=== PATIENT | female | born 1950 | race Caucasian/White ===

== ENCOUNTER 2018-02-10 09:09 | Observation (INO) | payer OTHER, MEDICARE ==
[2018-02-10 10:27] LABS: Troponin I Less than 0.010 ng/mL (< 0.028)
--- NOTE | 2018-02-10 12:24 | HP ---
PRIMARY CARE PHYSICIAN: Dr. Parry. REASON FOR ADMISSION: Transfer from [facility] for chest pain. HISTORY OF PRESENT ILLNESS: A 67-year-old female who has underlying history of hypertension, diabete s type 2, dyslipidemia, and coronary artery disease with several stent who presented initially to [facility] with the complaint of chest pain. She reports that she has chest pain on an d off for the last several months. She tells me of more than 3-4 months. Her pain is pretty much on the left-sided, which comes and goes. Yesterday, she had more frequent episode of chest pain, which was left-sided in location, sharp in nature without any association of nausea, vomiting, diaphoresis or shortness of breath. With the chest pain, she was not feeling any palpitation and there was no r adiation of pain. The pain was lasting randomly different time. There was no specific aggravating o r relieving factor. The patient reports that over this period of time, the patient did not put any a ttention to it what aggravating or what relieving, but she was worried about yesterday's more frequen t pain and this morning she woke up with chest pain and that is why she wanted to check out and that is why she went to [facility]. Initially at [facility], she was hypertensive. She was given nitro patch, amlodipin e, aspirin and subsequently this patient was transferred to our hospital for rule out acute coronary syndrome. Initial cardiac enzymes were negative there and echocardiogram was also unremarkable. Whe n I saw this patient in the morning, at that time, the patient was completely asymptomatic. She repo rted to me that sometimes she gets tingling sensation in her right hand, but it also happens even wit hout chest pain. She denies any UTI symptoms. She denies any constipation, diarrhea, melena or sharmin tochezia. She denies any exertional chest pain. She denies any orthopnea, PND or leg swelling. She denies any calf tenderness. She denies any hemoptysis or cough. She denies any fever or chills. REVIEW OF SYSTEMS: The following complete review of systems was negative, unless otherwise mentioned in the HPI or below: Constitutional: Weight loss or gain, ability to conduct usual activities. Skin: Rash, itching. Eyes: Double vision, pain. ENT/Mouth: Nose bleeding, neck stiffness, pain, tenderness. Cardiovascular: Palpitations, dyspnea on exertion, orthopnea. Respiratory: Shortness of breath, wheezing, cough, hemoptysis, fever or night sweats. Gastrointestinal: Poor appetite, abdominal pain, heartburn, nausea, vomiting, constipation, or diarr hea. Genitourinary: Urgency, frequency, dysuria, nocturia. Musculoskeletal: Pain, swelling. Neurologic/Psychiatric: Anxiety, depression. Allergy/Immunologic: Skin rash, bleeding tendency. Please see my HPI for pertinent positive and negative. All other review of system reviewed and negat janusz except as mentioned in the HPI. PAST MEDICAL HISTORY: Diabetes type 2, hypertension, dyslipidemia, coronary artery disease with a st ent. PAST SURGICAL HISTORY: Tubal ligation, cardiac catheterization with 3 stents placed in past. PAST PSYCHIATRIC HISTORY: Reviewed and negative. SOCIAL HISTORY: Patient lives at home with the family. No history of tobacco, alcohol or illicit dr ug abuse. FAMILY HISTORY: Positive for coronary artery disease to mother and brother. EMERGENCY ROOM COURSE: Patient was given aspirin, amlodipine, nitropatch at [facility]. ALLERGIES: No known drug allergy. CURRENT HOME MEDICATIONS: Lipitor 40 mg p.o. daily, metformin 1000 mg twice daily, metoprolol tartra te 25 mg twice daily, aspirin 81 mg p.o. daily, lisinopril 10 mg p.o. daily. PHYSICAL EXAMINATION: VITAL SIGNS: On arrival, blood pressure 160/72, pulse 71, respiratory rate 17, temperature 98.6, sat uration 96% on room air, weight 63.5 kilograms. GENERAL: Patient is currently alert, awake, no acute distress. HEENT: Head: Normocephalic, atraumatic. Eyes: Pupils round, reactive to light. Extraocular muscl e intact. ENT: Oropharynx within normal limits. Moist mucous membranes. No oral lesion, no pharyn geal erythema, no exudate. NECK: Supple, no JVD, no thyromegaly, no carotid bruit, no jugular venous distention. LUNGS: Clear to auscultation without any rhonchi or rales. CARDIAC: S1, S2 regular, soft systolic flow murmur, type of murmur heard parasternally. No gallop, no rub. ABDOMEN: Soft, bowel sounds present, nontender, nondistended. No organomegaly, no mass, no suprapub ic tenderness. BACK: Unremarkable, no CVA tenderness. EXTREMITIES: Upper extremity, passive movement of all joints are normal. Lower extremity, no edema, good peripheral pulsation, no calf tenderness. SKIN: No skin rash. HEMATOLOGICAL: No lymphadenopathy. PSYCHIATRIC: Normal affect. NEUROLOGIC: Nonfocal examination. SIGNIFICANT LABORATORY DATA AND X-RAY FINDINGS: 1. CBC: WBC 13.3, hemoglobin 13.3, platelets 321. INR 1.0. BMP shows sodium 137, potassium 4.8, c hloride 101, carbon dioxide 22, anion gap 19, BUN 14, creatinine 0.79, glucose 186, calcium 9.2. 2. LFT: AST 10, ALT 10, alkaline phosphatase 81, albumin 3.5. CK-MB 1.2, troponin I less than 0.01 0. BNP 32.8. 3. Chest x-ray based on my review, no acute cardiopulmonary process. EKG based on my review, normal sinus rhythm within normal limit, nonspecific ST-T changes. ASSESSMENT AND PLAN: 1. Chest pain. The patient has prolonged chest pain history, which is on and off, but gotten worse yesterday and woke up this morning with chest pain. She has underlying history of coronary artery di sease with stents x3 and she has other risk factors for coronary artery disease including diabetes, h ypertension, dyslipidemia, and family history. Her current chest pain description does not consisten t with anginal pain, but atypical in nature. At this point, the patient's cardiac enzymes are negati ve. EKG unremarkable. We will perform exercise Cardiolite stress test for diagnostic reason. Flakita urbina, we will continue with aspirin 325 mg p.o. daily, nitropatch q.8 hourly. We will check lipid pr ofile for risk stratification. This patient does not have any clinical history to support thromboemb olic disorder. At this point, we are trying to do stress test today if possible and if stress test t urn out to be negative, then we will consider discharging her home later on today. Otherwise, if str ess test is not done today, then she will stay overnight and we will have stress test done in the [facility] and then if negative, she can be discharged home. 2. Coronary artery disease. Currently, the patient is admitted for chest pain workup. Currently, jesse prescott has aspirin 325 mg p.o. daily, nitropatch q.8 hourly. We are not going to give her beta block er for stress test. We will continue Lipitor 40 mg p.o. at bedtime. 3. Diabetes type 2. We will hold metformin for now. In case if this patient's stress test is posit janusz, then she may need a cardiac catheterization and we will do insulin as per sliding scale per prot ocol. Diabetic diet will be given. We will keep her n.p.o. for now if we can do stress test today. If stress trest is not possible today, then we will start 1800 kilocalorie diabetic diet and we will keep her n.p.o. after midnight. 4. Hypertension. We will continue lisinopril 10 mg p.o. daily. 5. Dyslipidemia. Check lipid profile today and does continue Lipitor 40 mg p.o. at bedtime. 6. Deep venous thrombosis prophylaxis not needed, because we are expecting discharge in 24 hours. 7. Gastrointestinal prophylaxis, Pepcid 20 mg p.o. b.i.d. 8. Code status: The patient is FULL CODE. Patient does not have any surrogate decision maker. Disposition and plan based on stress test result.
[2018-02-10] MEDS ORDERED: HYDROcodone/Acetaminophen 5/325 mg Tablet PO PRN ×3 (12:38→12:55)
[2018-02-10] MEDS ORDERED: Acetaminophen 325 MG TAB PO PRN ×2 (12:38→12:55)
[2018-02-10] MEDS ORDERED: Ondansetron HCl/PF 4 MG/2 ML Vial IVP PRN ×2 (12:38→12:55)
[2018-02-10] MEDS ORDERED: Ondansetron ODT 4 MG TAB SL PRN (12:38)
[2018-02-10 12:40] VITALS: BMI 24.7
[2018-02-10] MEDS ORDERED: Dextrose 5% in Water 1,000 ML IV PRN (12:55)
[2018-02-10] MEDS ORDERED: Milk Of Magnesia 30 ML UDCUP PO PRN (12:55)
[2018-02-10] MEDS ORDERED: Loperamide HCl 2 MG CAP PO PRN (12:55)
[2018-02-10] MEDS ORDERED: Mag-Al 1200 mg/1200 mg/30 ML UDCUP PO PRN (12:55)
[2018-02-10] MEDS ORDERED: HumaLOG 300 UNITS/3 ML VIAL SC PRN ×2 (12:55)
[2018-02-10] MEDS ORDERED: Senokot 8.6 MG TAB PO PRN (12:55)
[2018-02-10] MEDS ORDERED: Dextrose 50% Abboject 50 ML SYRINGE SLOW IVP PRN (12:55)
[2018-02-10] MEDS ORDERED: Ondansetron ODT 4 MG TAB PO PRN (12:55)
[2018-02-10] MEDS ORDERED: Zolpidem Tartrate 5 MG TAB PO PRN (12:55)
[2018-02-10] MEDS ORDERED: Aspirin 325 MG TAB PO SCH (13:00)
[2018-02-10 13:13] LABS: Troponin I Less than 0.010 ng/mL (< 0.028)
[2018-02-10 13:16] LABS: Cardiac Risk 3.2 (Less than 4.5)
[2018-02-10] MEDS: Nitroglycerin 2% Ointment 1 INCH/1 GM Packet TOP SCH ×2 (14:36→20:43)
[2018-02-10] MEDS: Famotidine 20 MG TAB PO SCH (20:39)
[2018-02-10] MEDS ORDERED: Atorvastatin Calcium 40 MG TAB PO SCH (21:00)
[2018-02-10] MEDS ORDERED: Prevnar 13-Val Conj/PF 0.5 ML SYRINGE IM ONE (21:00)
[2018-02-11] MEDS: Nitroglycerin 2% Ointment 1 INCH/1 GM Packet TOP SCH (06:37)
[2018-02-11] MEDS ORDERED: Aspirin 325 MG TAB PO SCH (09:00)
[2018-02-11] MEDS ORDERED: Lisinopril 10 MG TAB PO SCH (09:00)
[2018-02-11] MEDS: Famotidine 20 MG TAB PO SCH (09:36)
--- NOTE | 2018-02-11 11:40 | DIS ---
PRIMARY CARE PHYSICIAN: Dr. Parry DATE OF ADMISSION: 02/10/2018 DATE OF DISCHARGE: 02/11/2018 DISCHARGE DISPOSITION: Home. PRIMARY DISCHARGE DIAGNOSIS: Chest pain, ruled out acute coronary syndrome. SECONDARY DISCHARGE DIAGNOSES: Coronary artery disease, diabetes type 2, dyslipidemia, hypertension. PRIMARY PROCEDURE/OPERATION: None. RADIOLOGICAL INVESTIGATION: Stress test is normal. His chest x-ray was done at [facility], it was normal. SIGNIFICANT LABS: CBC: WBC 13.3, hemoglobin 13.3, platelet 321. INR 1.0, LDL 57. Cardiac enzymes negative x3. Sodium 137, creatinine 0.79. LFT normal. BNP 32.8. DISCHARGE MEDICATIONS: Aspirin 81 mg p.o. daily, Lipitor 40 mg p.o. daily, Glucotrol 10 mg p.o. matias y, lisinopril 10 mg p.o. daily, metformin 1000 mg p.o. b.i.d., metoprolol 25 mg p.o. b.i.d. CONTRAINDICATIONS: None. CODE STATUS: FULL CODE. INPATIENT CONSULTANTS: None. ALLERGIES: No known drug allergy. DISCHARGE PLAN: Post hospital, the patient will follow up with primary care physician in 1 week. HOSPITAL COURSE: A 67-year-old female with the above-mentioned medical problem who was admitted by lauren zapata for chest pain. Please see my HPI for further detail. Initially, the patient went to [facility] where she had an EKG which was unremarkable. Chest x-ray was normal. Routine blood test was also unremarkable. She was sent to our hospital for rule out acute coronary syndrome. She had serial cardiac enzyme that were negative. Her lipid profile is also at target. We did stress te st, pharmacological and that came back negative as well. The patient is seen and examined at bedside today. VITAL SIGNS: Currently, temperature 98.4, pulse 68, respiratory rate 12, saturation 97%, blood press ure 166/71, weight 144 pound. GENERAL: The patient is currently alert, awake, no acute distress. HEAD: Normocephalic, atraumatic. EYES: Pupils are round, reactive to light. Extraocular muscle intact. ENT: Oropharynx within normal limits. Moist mucous membrane, no oral lesion, no pharyngeal erythema , no exudate. NECK: Supple, no JVD, no thyromegaly, no carotid bruit. LUNGS: Clear to auscultation. CARDIAC: S1, S2 regular without any murmur. ABDOMEN: Soft and benign. EXTREMITIES: No edema. NEUROLOGIC: Nonfocal examination. The patient is medically stable for discharge today.
--- NOTE | 2018-02-11 11:48 | NM ---
CARDIAC SPECT: CLINICAL HISTORY: 67-year-old female with chest pain and coronary artery disease. Status post stent placement. Hyperten melinda, diabetes, and dyslipidemia. TECHNIQUE: A myocardial perfusion scan was performed using the single isotope two day protocol with 32 mCi techn etium-99m sestamibi injected intravenously for both stress and rest images. Pharmacologic stress with Lexiscan was monitored and interpreted by Joe Caraballo. FINDINGS: Homogeneous tracer distribution is seen in the myocardial segments on stress and rest images without fixed or reversible defects. GATED SPECT LVEF: 76%. WALL MOTION EXAM: Normal. IMPRESSION: Normal myocardial perfusion scan. POS: ESTEBAN
[2018-02-11 12:51] VITALS: BP 153/67; TEMP 97.6
[2018-02-11] MEDS ORDERED: Regadenoson 0.4 MG/5 ML SYRINGE ONE (13:24)
== END 2018-02-11 14:43 | disposition home or self-care (01) ==
LOC: ERS 09:09 → 2SW 10:03
PROVIDERS: ADMIT Internal Medicine; ATTEND Internal Medicine
DX: R07.9 Chest pain, unspecified (principal); I25.10 Atherosclerotic heart disease of native coronary artery without angina pectoris; E11.9 Type 2 diabetes mellitus without complications; E78.5 Hyperlipidemia, unspecified; Z95.5 Presence of coronary angioplasty implant and graft; Z79.84 Long term (current) use of oral hypoglycemic drugs; Z79.82 Long term (current) use of aspirin; Z79.899 Other long term (current) drug therapy
CPT/HCPCS: 36415; 36416; 78452; 80061; 93017; 99285; A9500; G0378; J2785

== ENCOUNTER 2019-04-01 12:21 | Observation (INO) | payer MEDICARE, OTHER ==
[2019-04-01 13:31] LABS: Bacteria/HPF 1+ HPF (None Seen); Bilirubin Negative (Negative); Blood, Urine Negative (Negative); Clarity Clear (Clear); Glucose, Urine (Dipstick) Greater than 1000 mg/dL (Negative); Leukocyte 25 Leu/uL (Negative); Nitrite Negative (Negative); Protein, Urine (Dipstick) Negative (Neg-Trace); Urobilinogen Normal mg/dL (Less than 2); Yeast-Budding 2+ HPF (None Seen)
[2019-04-01 13:44] LABS: RBC/HPF 0-3 HPF (0-3)
--- NOTE | 2019-04-01 16:21 | HP ---
PRIMARY CARE PHYSICIAN: Dr. Parry. CHIEF COMPLAINT: Slurred speech. HISTORY OF PRESENT ILLNESS: Ms. De Santiago is a pleasant 68-year-old female, who has a history of hypertension and diabetes. She was in her usual state of health until last night when she started having some slurring of her speech. This started around 5:00 to 5:30 p.m. She has also mentioned some right hand tingling, but this has been going on she says for a long time and has not changed in any way. She has a friend who is at the bedside, who says that her eyes also look glassy at that time and she thought that the right side of her face was a little bit drooped. Her friend convinced her to come to the hospital. Since being in the emergency room, her symptoms have actually improved some and she is being admitted for TIA versus stroke. She denies having any chest pain currently, but has had some she says sharp chest pains off and on. No shortness of breath. No PND. No orthopnea. No weakness in any of her extremities. REVIEW OF SYSTEMS: CONSTITUTIONAL: There has been no fevers or chills. No night sweats. No weight loss. HEENT: No headaches. No dizziness. No visual changes. No sore throat or rhinorrhea. NECK: No neck pain. No adenopathy. PULMONARY: No hemoptysis, no cough, no wheezing. CARDIOVASCULAR: As in the history of present illness. GASTROINTESTINAL: No abdominal pain. No nausea. No vomiting. No change in bowels. GENITOURINARY: No urinary frequency or hematuria. No hesitancy. NEUROLOGIC: As in the history of present illness and also no seizures. MUSCULOSKELETAL: No muscle pains, weakness, or joint pain. SKIN AND INTEGUMENT: No skin changes. No rash. PAST MEDICAL HISTORY: Significant for coronary artery disease, diabetes mellitus type 2, hypertension, and hyperlipidemia. PAST SURGICAL HISTORY: She has had three stents placed, heart stents. ALLERGIES: NO KNOWN DRUG ALLERGIES. SOCIAL HISTORY: She is a nonsmoker and nondrinker. She is a full code. Her daughter, Lisette states would be her surrogate decision maker. FAMILY HISTORY: Significant for coronary artery disease. Brother and sister had stroke. Mother has had heart disease. CURRENT MEDICATIONS: She says they are the same as when she was here before and these include; 1. Atorvastatin 40 mg daily. 2. Metformin 1000 mg twice daily. 3. Metoprolol 50 mg one-half tablet twice a day. 4. Aspirin 81 mg daily. 5. Lisinopril 20 mg daily. PHYSICAL EXAMINATION: GENERAL: She is alert and oriented. She appears to be in no acute distress. She is well developed and well nourished. VITAL SIGNS: Blood pressure was 162/74, heart rate 66, respiratory rate of 16, temperature is 98.4, and O2 saturation is 96% on room air. HEENT: Pupils are equal, round, and reactive to light. Extraocular muscles are intact. Her sclerae anicteric. Throat, there is no erythema. No exudates. NECK: No adenopathy. No bruits. LUNGS: Clear to auscultation. There is no wheezing, no rales, no rhonchi. CARDIOVASCULAR: She has a normal S1 and S2. There is no S3 or S4. No murmurs, clicks, or rubs. ABDOMEN: Soft. It is nontender and nondistended. Positive for bowel sounds. No rebound. No guarding. EXTREMITIES: There is no clubbing or cyanosis. No edema. NEUROLOGIC: She has some dysarthria and her cranial nerves are intact. Her muscle strength is 5/5 in both her upper and lower extremities. She did have some weakness with sternocleidomastoid, that is on the right. SKIN AND INTEGUMENT: No skin changes. No rashes. LABORATORY DATA: Her urinalysis; she has some 2+ yeast and her white blood cell count was 8.6, hemoglobin 14, hematocrit is 42.8, and platelet count is 298. INR is 1.0. Sodium is 137, potassium 4.5, chloride is 102, CO2 is 26, BUN of 12, creatinine of 1.02, and glucose is 289. She had a CT scan of the brain, which was negative for any acute intracranial abnormality. She also had a chest x-ray, which was negative for any infiltrates or effusions and heart size is normal and this is by my reading. ASSESSMENT: 1. This is a pleasant 68-year-old female, who presents to the emergency room with complaints of slurred speech. Her symptoms have been fairly consistent since 0530 hours of last night, making this a strong possibility that this could be a completed stroke. There has been some improvement however. She will be admitted. We will monitor her on telemetry to rule out occult atrial fibrillation of the potential cause, check her lipid panel as well as carotid Dopplers, and an echo. 2. For hypertension, we will continue her usual home medications as well as p.r.n. medications. 3. Diabetes mellitus. We will hold off on metformin for now. However, we will place her on a sliding scale insulin. She will also be placed on DVT and GI prophylaxis. Job ID: [id number]
[2019-04-01] MEDS ORDERED: Acetaminophen 325 MG TAB PO PRN ×2 (16:45→17:08)
[2019-04-01] MEDS ORDERED: Ondansetron PF 4 MG/2 ML Vial IVP PRN (16:45)
[2019-04-01] MEDS ORDERED: Ondansetron ODT 4 MG TAB SL PRN (16:45)
[2019-04-01 17:02] VITALS: BMI 22.3
[2019-04-01] MEDS ORDERED: HumaLOG 300 UNITS/3 ML VIAL SC PRN (17:08)
[2019-04-01] MEDS ORDERED: Dextrose 50% Abboject 50 ML SYRINGE SLOW IVP PRN (17:08)
[2019-04-01] MEDS ORDERED: Dextrose 5% in Water 1,000 ML IV PRN (17:08)
[2019-04-01] MEDS ORDERED: hydrALAZINE 20 MG/ML VIAL SLOW IVP PRN (17:57)
[2019-04-01] MEDS ORDERED: Atorvastatin Calcium 40 MG TAB PO SCH (21:00)
[2019-04-01] MEDS: Famotidine 20 MG TAB PO SCH (21:03)
[2019-04-01] MEDS: Metoprolol Tartrate 25 MG TAB PO SCH (21:03)
[2019-04-01] MEDS: HumaLOG 300 UNITS/3 ML VIAL SC PRN (21:19)
[2019-04-02 06:26] LABS: #Basophils 0.1 thou/uL (0.0-0.2); #Eosinphils 0.5 thou/uL (0.0-0.7); #Lymphocytes 2.5 thou/uL (1.20-3.40); #Monocytes 0.6 thou/uL (0.11-0.59); #Neutrophils 4.5 thou/uL (1.40-6.50); %Basophils 0.8 % (0.0-1.0); %Eosinophils 5.8 % (0.0-10.0); %Lymphocytes 30.5 % (21.0-51.0); %Monocytes 7.2 % (0.0-10.0); %Neutrophils 55.6 % (42.0-75.0); Hemoglobin 13.5 g/dL (12.0-16.0); Mean Corpuscular HGB CONC 32.9 g/dL (32.0-36.0); Mean Corpuscular Hemoglobin 30.9 pg (27.0-31.0); Mean Corpuscular Volume 93.9 fL (78.0-98.0); Mean Platelet Volume 8.1 fL (7.4-10.4); Platelet Count 291 thou/uL (130-400); RBC Distribution Width 11.1 % (11.5-14.5); Red Blood Cell (RBC) Count 4.38 mill/uL (4.20-5.40)
[2019-04-02 06:46] LABS: Anion Gap 10 mmol/L (10-20); BUN (Urea Nitrogen) 15 mg/dL (9.8-20.1); Calc. Creatinine Clearance 58 mL/min (70-130); Carbon Dioxide 26 mmol/L (23-31); Cardiac Risk 3.5 (Less than 4.5); Chloride 102 mmol/L (98-107); Cholesterol 132 mg/dl (< 200 Desired); Estimated GFR-MDRD 59; Glucose 222 mg/dL (80-115); HDL Cholesterol 38 mg/dL (>60 Neg Risk); LDL Cholesterol, Calculated 69 mg/dL; Potassium 4.3 mmol/L (3.5-5.1); Sodium 134 mmol/L (136-145); Triglycerides 127 mg/dL (Less than 150)
[2019-04-02] MEDS ORDERED: glipiZIDE 10 MG TAB PO SCH (07:30)
--- NOTE | 2019-04-02 08:07 | ULT ---
Ultrasound Doppler duplex carotid: 04/02/2019 HISTORY: 8-year-old female with TIA TECHNIQUE: Grayscale, color-flow, and spectral analysis, of major arteries of neck. FINDINGS: Vertebral artery flow is antegrade bilaterally. Highest peak systolic velocities in the internal carotid arteries are 90 cm/s on the right and 85 cm/ s on the left. ICA/CCA ratios are bilaterally approximately 1.0. Minimal plaque at the bilateral carotid bulbs. IMPRESSION: No hemodynamically significant stenosis.
[2019-04-02] MEDS ORDERED: Enoxaparin Sodium 40 MG/0.4 ML SYRINGE SC SCH (09:00)
[2019-04-02] MEDS ORDERED: Clopidogrel Bisulfate 75 MG TAB PO SCH (09:00)
[2019-04-02] MEDS ORDERED: Lisinopril 10 MG TAB PO SCH (09:00)
[2019-04-02] MEDS ORDERED: Aspirin 81 mg Enteric Coated Tablet PO SCH (09:00)
[2019-04-02] MEDS ORDERED: Aspirin 325 mg Enteric Coated Tablet PO SCH (09:00)
[2019-04-02] MEDS: Metoprolol Tartrate 25 MG TAB PO SCH (10:22)
[2019-04-02] MEDS: Famotidine 20 MG TAB PO SCH (10:22)
--- NOTE | 2019-04-02 12:24 | CON ---
DATE OF CONSULTATION: 04/02/2019 CONSULTING PHYSICIAN: Hospitalist Service. IMPRESSION: 1. Probable small vessel stroke with mild dysarthria. 2. Diabetes. 3. Hypertension. 4. Hyperlipidemia. 5. Aspirin failure. PLAN: 1. Add Plavix. 2. Echocardiogram. 3. MRI of the brain. HISTORY OF PRESENT ILLNESS: Ms. De Santiago is a 68-year-old female with the above noted medical problems. She presented with dysarthria, that has been present for [address] scan did not show any ischemic changes. Her carotid ultrasound does not show any stenosis. Her symptoms have improved somewhat based on her reports. PAST MEDICAL HISTORY: As listed above. ALLERGIES: NONE. SOCIAL HISTORY: Unremarkable. FAMILY HISTORY: Unremarkable. MEDICATION LIST: Reviewed. REVIEW OF SYSTEMS: Ten system review of systems is otherwise negative. PHYSICAL EXAMINATION: VITAL SIGNS: Blood pressure 114/59, pulse 59, respirations 16, and temperature 97.3. HEENT: Pupils are equal and reactive. Conjunctivae are clear. Oropharynx clear. Cranium, normocephalic and atraumatic. NECK: Supple. No lymphadenopathy. EXTREMITIES: No cyanosis, clubbing, or edema. NEUROLOGIC: She is alert and appropriate. Her speech is fluent with a mildly dysarthric quality. Cranial nerves exam showed some questionable right nasolabial fold flattening. Motor exam showed equal cradle slide maker strength. There is no fix or drift. Sensation was intact to touch. She can walk independently. LABORATORY STUDIES: Unremarkable CBC and chemistry panel other than a blood glucose of 437 on arrival. Cholesterol ratio was 3.5. Urinalysis showed glucosuria. IMAGING DATA: Imaging was reviewed. SUMMARY: This is a 68-year-old woman with some mild dysarthria consistent with a small stroke. She was already on aspirin and a statin, therefore I would add Plavix and complete her workup today and she should be stable for discharge. Job ID: [id number]
[2019-04-02] MEDS: HumaLOG 300 UNITS/3 ML VIAL SC PRN ×2 (12:30→17:30)
--- NOTE | 2019-04-02 13:53 | PDOC.PN ---
- Subjective Encounter Start Date: 04/02/19 Encounter Start Time: 11:30 Subjective: awake, moves all extremities -: mild difficulty speaking, no facial weakness -: has chronic right UE tingling - Objective Resuscitation Status - Order Detail: 04/01/19 15:47 Resuscitation Status Routine Resuscitation Status: FULL: Full Resuscitation MAR Reviewed: Yes Vital Signs & Weight: Vital Signs (12 hours) Temp Pulse Pulse Pulse Resp BP BP 04/02/19 11:49 98.0 F 56 L 16 04/02/19 09:28 67 66 139/69 139/72 04/02/19 09:00 67 67 139/70 139/69 04/02/19 07:00 97.3 F L 59 L 16 04/02/19 04:00 98.4 F 62 16 BP Pulse Ox 04/02/19 11:49 116/64 97 04/02/19 09:28 04/02/19 09:00 04/02/19 07:00 114/59 L 96 04/02/19 04:00 125/65 97 Weight Weight 138 lb 8 oz I&O: 04/01/19 04/02/19 04/03/19 06:59 06:59 06:59 Intake Total 780 480 Balance 780 480 Result Diagrams: 04/02/19 06:05 04/02/19 06:05 Additional Labs: Accuchecks 04/02/19 04/02/19 04/01/19 10:34 05:45 21:11 POC Glucose 228 H 189 H 437 H Phys Exam - Physical Examination HEENT: PERRLA, moist MMs Neck: no JVD, supple Respiratory: no wheezing, no rales Cardiovascular: RRR, no significant murmur Gastrointestinal: soft, non-tender, positive bowel sounds Musculoskeletal: no edema, pulses present Neurological: non-focal, moves all 4 limbs dysarthria+ Psychiatric: normal affect, A&O x 3 Dx/Plan (1) TIA (transient ischemic attack) Code(s): G45.9 - TRANSIENT CEREBRAL ISCHEMIC ATTACK, UNSPECIFIED Status: Acute (2) CAD (coronary artery disease) Code(s): I25.10 - ATHSCL HEART DISEASE OF [place] CORONARY ARTERY W/O ANG PCTRS Status: Chronic Qualifiers: Coronary Disease-Associated Artery/Lesion type: [place] artery [place] vs. transplanted heart: [place] heart Associated angina: without angina Qualified Code(s): I25.10 - Atherosclerotic heart disease of [place] coronary artery without angina pectoris Comment: prior 3 stents (3) Diabetes type 2, controlled Code(s): E11.9 - TYPE 2 DIABETES MELLITUS WITHOUT COMPLICATIONS Status: Chronic Qualifiers: Diabetes mellitus moth exterminator insulin use: without chcf use Diabetes mellitus complication status: without complication Qualified Code(s): E11.9 - Type 2 diabetes mellitus without complications (4) Dyslipidemia Code(s): E78.5 - HYPERLIPIDEMIA, UNSPECIFIED Status: Chronic (5) Hypertension Code(s): I10 - ESSENTIAL (PRIMARY) HYPERTENSION Status: Chronic Qualifiers: Hypertension type: essential hypertension Qualified Code(s): I10 - Essential (primary) hypertension - Plan await MRI and echo results -: clinically has dysarthria but has improved, no focal signs -: continue asp, plavix, lipitor, lopressor, glipizide -: If mri does not show a big infarct may dc home -: d/w patient and gave updates about currents results * . Review of Systems - Medications/Allergies Allergies/Adverse Reactions: Allergies Allergy/AdvReac Type Severity Reaction Status Date / Time No Known Allergies Allergy Verified 02/10/18 12:45 Medications: Current Medications Acetaminophen (Tylenol) 650 mg PO Q4H PRN PRN Reason: Headache/Fever/Mild Pain (1-3) Aspirin (Ecotrin) 81 mg PO DAILY [facility] Last Admin: 04/02/19 10:22 Dose: 81 mg Atorvastatin Calcium (Lipitor) 40 mg PO HS [facility] Last Admin: 04/01/19 21:02 Dose: 40 mg Clopidogrel Bisulfate (Plavix) 75 mg PO DAILY [facility] Last Admin: 04/02/19 10:22 Dose: 75 mg Dextrose/Water (Dextrose 50%) 25 gm SLOW IVP PRN PRN PRN Reason: Hypoglycemia Enoxaparin Sodium (Lovenox) 40 mg SC 0900 [facility] Last Admin: 04/02/19 10:22 Dose: 40 mg Famotidine (Pepcid) 20 mg PO BID [facility] Last Admin: 04/02/19 10:22 Dose: 20 mg Glipizide (Glucotrol) 10 mg PO DAILY-AC [facility] Last Admin: 04/02/19 10:22 Dose: 10 mg Glucagon (Glucagon) 1 mg IM PRN PRN PRN Reason: Hypoglycemia Hydralazine HCl (Apresoline) 10 mg SLOW IVP Q4H PRN PRN Reason: SBP > 180 and HR < 70 Dextrose/Water (D5w) 1,000 mls @ 0 mls/hr IV .Q0M PRN PRN Reason: Hypoglycemia Insulin Human Lispro (Humalog) 0 units SC .MODERATE SLIDING SC PRN PRN Reason: Moderate Correctional Scale Last Admin: 04/02/19 12:30 Dose: 4 unit Insulin Human Lispro (Humalog) 0 units SC .BEDTIME SLIDING SC PRN PRN Reason: Bedtime Correctional Scale Lisinopril (Zestril) 10 mg PO DAILY [facility] Last Admin: 04/02/19 10:22 Dose: 10 mg Metoprolol Tartrate (Lopressor) 25 mg PO BID [facility] Last Admin: 04/02/19 10:22 Dose: 25 mg Ondansetron HCl (Zofran) 4 mg IVP Q6H PRN PRN Reason: Nausea/Vomiting Ondansetron HCl (Zofran Odt) 4 mg SL Q6H PRN PRN Reason: Nausea/Vomiting Sodium Chloride (Flush - Normal Saline) 10 ml IVF PRN PRN PRN Reason: Saline Flush
[2019-04-02 16:00] VITALS: BP 114/62; TEMP 98
--- NOTE | 2019-04-02 17:21 | MRI ---
Exam: Brain MRI without contrast HISTORY: Eval for CVA. Arm numbness. Slurred speech. COMPARISON: None FINDINGS: Calvarial marrow signal intensity: Appropriate T1 signal Gradient echo sequence: No hemorrhage Brain parenchyma: No mass, mass effect or midline shift. Brain volume, age-appropriate. Cortical narayanan-white matter differentiation: Preserved Restricted diffusion: Central arterial flow voids are maintained. Absent restricted diffusion White matter signal intensities: T2, FLAIR white matter hyperintensities due to chronic small vessel ischemic changes Sinuses: Adequate aeration of the paranasal sinuses and mastoid air cells. IMPRESSION: 1. Absent restricted diffusion. No acute infarct. 2. No acute intracranial process.
--- NOTE | 2019-04-03 17:19 | DIS ---
DATE OF ADMISSION: 04/01/2019 DATE OF DISCHARGE: 04/02/2019 DISCHARGE DISPOSITION: Home. PRIMARY DISCHARGE DIAGNOSIS: Transient ischemic attack, resolved. SECONDARY DISCHARGE DIAGNOSES: Coronary artery disease with prior stents, diabetes mellitus type 2, dyslipidemia, and hypertension. PROCEDURES DONE DURING HOSPITALIZATION: MRI of brain showed absent restricted diffusion. No acute infarct. No acute intracranial process. Ultrasound of carotids showed no hemodynamically significant stenosis. Echo with 2D Doppler showed EF of 55% to 60%. No ASD or PFO seen. Hemoglobin and hematocrit of 13 and 41, platelet count 291. Total cholesterol 132, triglycerides 127, LDL 69, and HDL 38. DISCHARGE MEDICATIONS: 1. Atorvastatin 20 mg p.o. at bedtime. 2. Jardiance 25 mg p.o. q.a.m. 3. Glipizide 10 mg twice daily. 4. Lisinopril 10 mg daily. 5. Glucophage 1000 mg twice daily. 6. Lopressor 12.5 mg p.o. twice daily. 7. Aspirin 81 mg p.o. daily. 8. MiraLAX 17 g daily. ALLERGIES: NO KNOWN DRUG ALLERGIES. DISCHARGE PLAN: The patient to follow up with primary care physician in 1 week. BRIEF COURSE DURING HOSPITALIZATION: The patient initially came in with complaints of slurred speech and suspected facial droop on the right. She was placed under observation on stroke unit and TIA evidence based protocol was followed. The CT of the brain and MRI of brain, both have not revealed any acute infarct or bleed. Carotid Doppler showed no hemodynamically significant stenosis. The patient's dysarthria and facial droop completely resolved on arrival in the ER. She remained hemodynamically stable and neurologically stable. She was evaluated by Dr. Mickey Higginbotham for Neurology as well. The patient was counseled with regard to heart healthy diet and 1800 kilocalorie diet. She needs follow up with primary care physician in 1 week. Please see a [id number] documentation for the day of discharge on [employer]. Job ID: [id number] [facility]
== END 2019-04-02 19:05 | disposition home or self-care (01) ==
LOC: ERS 12:21 → 2SE 16:54
PROVIDERS: ADMIT Internal Medicine; ATTEND Internal Medicine
DX: G45.9 Transient cerebral ischemic attack, unspecified (principal); I25.10 Atherosclerotic heart disease of native coronary artery without angina pectoris; E11.9 Type 2 diabetes mellitus without complications; I10 Essential (primary) hypertension; E78.5 Hyperlipidemia, unspecified; Z95.5 Presence of coronary angioplasty implant and graft; Z79.84 Long term (current) use of oral hypoglycemic drugs; Z79.899 Other long term (current) drug therapy
CPT/HCPCS: 36415; 36416; 70551; 80048; 80061; 81003; 81015; 85025; 93306; 93880; 94760; 96372; G0378; J1650

== ENCOUNTER 2019-09-28 13:59 | Outpatient (CLI) | payer OTHER ==
--- NOTE | 2019-09-28 14:46 | BD ---
EXAM: DEXA bone density examination HISTORY: 68-year-old postmenopausal female for screening COMPARISON: None FINDINGS: L1--bone mineral density 0.968 g/sq cm; T score -0.2 L2--bone mineral density 1.006 g/sq cm; T score -0.2 L3--bone mineral density 1.124 g/sq cm; T score 0.4 L4--bone mineral density 1.063 g/sq cm; T score 0.0 Total L1-L4--bone mineral density 1.044 g/sq cm; T score 0.0 Left femoral neck--bone mineral density0.696; T score -1.4 Total proximal left femur--bone mineral density 0.869; T score -0.6 IMPRESSION: Osteopenia This patient has a 10 year WHO fracture risk of a major osteoporotic fracture of 8.9% and of a hip fracture of 0.9%.
--- NOTE | 2019-09-28 15:55 | MMO ---
Bilateral MAMMO Bilat Screen [facility]. CLINICAL HISTORY: Patient is 68 years old and is seen for screening. The patient has the following family history of breast cancer: niece. The patient has no personal history of cancer. VIEWS: The views performed were: bilateral craniocaudal with tomosynthesis and bilateral mediolateral oblique with tomosynthesis. FILMS COMPARED: The present examination has been compared to a prior imaging study performed at [facility] on 01/07/2012. This study has been interpreted with the assistance of computer-aided detection. MAMMOGRAM FINDINGS: There are scattered fibroglandular densities. Benign calcifications are noted bilaterally. There are no suspicious masses, suspicious calcifications, or new areas of architectural distortion. IMPRESSION: THERE IS NO MAMMOGRAPHIC EVIDENCE OF MALIGNANCY. A ROUTINE FOLLOW-UP MAMMOGRAM IN 1 YEAR IS RECOMMENDED. THE RESULTS OF THIS EXAM WERE SENT TO THE PATIENT. ACR BI-RADS Category 2 - Benign finding MAMMOGRAPHY NOTE: 1. A negative mammogram report should not delay a biopsy if a dominant of clinically suspicious mass is present. 2. Approximately 10% to 15% of breast cancers are not detected by mammography. 3. Adenosis and dense breasts may obscure an underlying neoplasm. Reported by: AMANDA HAMMONDS MD Electonically Signed: [id number]
== END 2019-09-28 14:00 | disposition home or self-care (01) ==
LOC: BICMAMMO 13:59
PROVIDERS: ATTEND Family Medicine
DX: Z12.31 Encounter for screening mammogram for malignant neoplasm of breast (principal); Z13.820 Encounter for screening for osteoporosis; N95.8 Other specified menopausal and perimenopausal disorders; Z80.3 Family history of malignant neoplasm of breast; M85.852 Other specified disorders of bone density and structure, left thigh
CPT/HCPCS: 77063; 77067; 77080

== ENCOUNTER 2022-01-22 11:17 | Inpatient (IN) | payer OTHER, MEDICARE ==
[2022-01-22 12:32] LABS: #Basophils 0.1 thou/uL (0.0-0.2); #Eosinphils 0.2 thou/uL (0.0-0.7); #Lymphocytes 3.3 thou/uL (1.20-3.40); #Monocytes 0.6 thou/uL (0.11-0.59); #Neutrophils 8.2 thou/uL (1.40-6.50); %Basophils 0.9 % (0.0-1.0); %Eosinophils 1.8 % (0.0-10.0); %Lymphocytes 26.3 % (21.0-51.0); %Monocytes 4.9 % (0.0-10.0); %Neutrophils 66.1 % (42.0-75.0); Hemoglobin 12.7 g/dL (12.0-16.0); Mean Corpuscular HGB CONC 31.6 g/dL (32.0-36.0); Mean Corpuscular Hemoglobin 30.6 pg (27.0-31.0); Mean Corpuscular Volume 96.8 fL (78.0-98.0); Mean Platelet Volume 7.5 fL (7.4-10.4); Platelet Count 350 thou/uL (130-400); RBC Distribution Width 10.8 % (11.5-14.5); Red Blood Cell (RBC) Count 4.14 mill/uL (4.20-5.40); White Blood Cell (WBC) Count 12.4 thou/uL (4.8-10.8)
[2022-01-22 12:45] LABS: PTT 23.2 sec (22.9-36.1); Prothrombin Time 13.5 sec (12.0-14.7)
[2022-01-22 12:49] LABS: ALT (SGPT) 29 U/L (8-55); AST (SGOT) 23 U/L (5-34); Albumin 3.8 g/dL (3.4-4.8); Alkaline Phosphatase 94 U/L (40-110); Anion Gap 16 mmol/L (10-20); BUN (Urea Nitrogen) 19 mg/dL (9.8-20.1); Bilirubin, Total 0.5 mg/dL (0.2-1.2); Calc. Creatinine Clearance 0 mL/min (70-130); Calcium 9.2 mg/dL (7.8-10.44); Carbon Dioxide 22 mmol/L (23-31); Chloride 100 mmol/L (98-107); Globulin 3.5 g/dL (2.4-3.5); Glucose 361 mg/dL (80-115); Lipase 35 U/L (8-78); Potassium 3.5 mmol/L (3.5-5.1); Protein, Total 7.3 g/dL (5.8-8.1); Sodium 134 mmol/L (136-145)
[2022-01-22] MEDS ORDERED: ceFAZolin (BATCH) 2 GM/100 ML BAG ONE ×2 (12:51→13:13)
[2022-01-22] MEDS ORDERED: Ondansetron PF 4 MG/2 ML Vial ONE ×2 (12:52→13:13)
[2022-01-22] MEDS ORDERED: Boostrix 0.5 ML (Tdap) VIAL ONE (12:52)
[2022-01-22] MEDS ORDERED: Xylocaine 1% w/ Epi 1:100K 10 ML VIAL ONE (13:13)
[2022-01-22] MEDS ORDERED: Bacitracin 1 PK ONE (13:13)
[2022-01-22] MEDS ORDERED: Lidocaine 1% (PF) 30 ML VIAL ONE (13:29)
[2022-01-22] MEDS ORDERED: hydrALAZINE 20 MG/ML VIAL SLOW IVP PRN (17:04)
[2022-01-22] MEDS ORDERED: Dextrose 50% Abboject 50 ML SYRINGE SLOW IVP PRN (17:04)
[2022-01-22] MEDS ORDERED: Morphine 4 MG/ML VIAL SLOW IVP PRN (17:04)
[2022-01-22] MEDS ORDERED: Dextrose 5% in Water 1,000 ML IV PRN (17:04)
[2022-01-22] MEDS ORDERED: Insulin Regular 300 UNITS/3 ML VIAL SC PRN (17:04)
[2022-01-22] MEDS ORDERED: Ondansetron PF 4 MG/2 ML Vial IVP PRN (17:04)
[2022-01-22] MEDS ORDERED: Cyclobenzaprine 10 MG TAB PO PRN (17:07)
[2022-01-22] MEDS ORDERED: traMADol HCl 50 MG TAB PO PRN (17:07)
[2022-01-22] MEDS ORDERED: Sodium Chloride 0.9% 1,000 ML IV SCH (17:15)
[2022-01-22] MEDS: Acetaminophen 500 MG TAB PO SCH (18:00)
[2022-01-22 18:34] VITALS: BMI 24.5
[2022-01-22] MEDS: Insulin Regular 300 UNITS/3 ML VIAL SC PRN (21:50)
[2022-01-22] MEDS: Famotidine 20 MG TAB PO SCH (21:51)
[2022-01-22] MEDS: Senokot S 8.6-50 MG TAB PO SCH (21:51)
[2022-01-22] MEDS: Gabapentin 300 MG CAP PO SCH (21:51)
[2022-01-22] MEDS: traMADol HCl 50 MG TAB PO SCH (21:51)
[2022-01-22] MEDS: Ibuprofen 200 MG TAB PO SCH (21:52)
[2022-01-23] MEDS: traMADol HCl 50 MG TAB PO SCH ×4 (02:15→20:08)
[2022-01-23 05:16] LABS: SARS-CoV-2 NAA Rapid Test Not Detected (NotDetected)
[2022-01-23 06:35] LABS: #Eosinphils 0.3 thou/uL (0.0-0.7); #Lymphocytes 1.9 thou/uL (1.20-3.40); #Monocytes 0.9 thou/uL (0.11-0.59); #Neutrophils 6.5 thou/uL (1.40-6.50); %Basophils 0.4 % (0.0-1.0); %Eosinophils 3.1 % (0.0-10.0); %Lymphocytes 19.8 % (21.0-51.0); %Monocytes 9.2 % (0.0-10.0); %Neutrophils 67.5 % (42.0-75.0); Hemoglobin 11.3 g/dL (12.0-16.0); Mean Corpuscular HGB CONC 34.2 g/dL (32.0-36.0); Mean Corpuscular Hemoglobin 33.2 pg (27.0-31.0); Mean Corpuscular Volume 97.2 fL (78.0-98.0); Mean Platelet Volume 7.5 fL (7.4-10.4); Platelet Count 270 thou/uL (130-400); RBC Distribution Width 10.7 % (11.5-14.5); White Blood Cell (WBC) Count 9.6 thou/uL (4.8-10.8)
[2022-01-23] MEDS: Acetaminophen 500 MG TAB PO SCH ×5 (06:40→23:00)
[2022-01-23] MEDS: Ibuprofen 200 MG TAB PO SCH ×3 (06:40→23:00)
[2022-01-23 06:54] LABS: Anion Gap 10 mmol/L (10-20); BUN (Urea Nitrogen) 19 mg/dL (9.8-20.1); Calc. Creatinine Clearance 57 mL/min (70-130); Carbon Dioxide 22 mmol/L (23-31); Chloride 103 mmol/L (98-107); Glucose 334 mg/dL (80-115); Magnesium 1.7 mg/dL (1.6-2.6); Phosphorus 3.6 mg/dL (2.3-4.7); Potassium 4.3 mmol/L (3.5-5.1); Sodium 131 mmol/L (136-145)
[2022-01-23] MEDS: Famotidine 20 MG TAB PO SCH ×2 (08:35→20:07)
[2022-01-23] MEDS: Gabapentin 300 MG CAP PO SCH ×4 (08:35→20:08)
[2022-01-23] MEDS: Metoprolol Tartrate 25 MG TAB PO SCH ×2 (08:36→20:08)
[2022-01-23] MEDS: Polyethylene Glycol 3350 17 GM Packet PO SCH (08:40)
[2022-01-23] MEDS: Senokot S 8.6-50 MG TAB PO SCH ×2 (08:41→20:08)
[2022-01-23] MEDS ORDERED: Insulin Glargine 30 UNITS/0.3 ML VIAL SC SCH (09:00)
[2022-01-23] MEDS: Saccharomyces boulardii 250 MG CAP PO SCH (10:03)
[2022-01-23] MEDS: ceFAZolin 1 GM/D5W 1 GM in Premix Bag 1 BAG IVPB SCH ×2 (11:41→17:36)
[2022-01-23] MEDS ORDERED: Bacitracin Zinc Ointment 30 gm TUBE ONE (12:42)
[2022-01-23] MEDS ORDERED: Neomycin-Polymyxin 1 ML AMP ONE (12:42)
[2022-01-23] MEDS ORDERED: Bupivacaine PF 0.5% 30 ML VIAL ONE (12:42)
[2022-01-23] MEDS ORDERED: ceFAZolin (BATCH) 2 GM/100 ML BAG ONE (13:08)
[2022-01-23] MEDS ORDERED: Lidocaine 1% PF 5 ML VIAL ONE (13:24)
[2022-01-23] MEDS ORDERED: Ondansetron PF 4 MG/2 ML Vial ONE (13:24)
[2022-01-23] MEDS ORDERED: Ketorolac Tromethamine 30 MG/ML VIAL ONE (13:24)
[2022-01-23] MEDS ORDERED: diphenhydrAMINE 50 MG/ML VIAL ONE (13:24)
[2022-01-23] MEDS ORDERED: PROPOFOL 200 MG/20 ML VIAL ONE (13:24)
[2022-01-23] MEDS ORDERED: ePHEDrine 50 MG/ML VIAL ONE ×2 (13:24)
[2022-01-23] MEDS ORDERED: Ondansetron HCl/PF 4 MG/2 ML Vial IVP PRN (14:46)
[2022-01-23] MEDS ORDERED: Promethazine HCl 25 MG/ML VIAL IM PRN ×2 (14:46→16:42)
[2022-01-23] MEDS ORDERED: Promethazine HCl 25 MG/ML VIAL IVPB PRN (14:46)
[2022-01-23] MEDS ORDERED: PACU-Morphine 4MG/ML VIAL SLOW IVP PRN (14:46)
[2022-01-23] MEDS ORDERED: hydrALAZINE 20 MG/ML VIAL ONE (15:25)
[2022-01-23] MEDS ORDERED: Meperidine HCl/PF 25 MG/ML VIAL IM PRN (16:41)
[2022-01-23] MEDS ORDERED: Morphine 4 MG/ML VIAL SLOW IVP PRN (16:44)
[2022-01-23] MEDS ORDERED: glipiZIDE 10 MG TAB PO SCH (16:45)
[2022-01-23] MEDS: metFORMIN 500 MG TAB PO SCH (17:34)
[2022-01-23] MEDS: Sodium Chloride 0.9% 1,000 ML IV SCH (17:36)
[2022-01-23] MEDS: ceFAZolin (BATCH) 2 GM in Premix Bag 1 BAG IVPB SCH (20:08)
[2022-01-23] MEDS: Insulin Glargine 30 UNITS/0.3 ML VIAL SC SCH (20:09)
[2022-01-23] MEDS ORDERED: Lantus 1000 UNITS/10 ML VIAL SC SCH (21:00)
[2022-01-23] MEDS ORDERED: Atorvastatin Calcium 20 MG TAB PO SCH (21:00)
[2022-01-23] MEDS: Insulin Regular 300 UNITS/3 ML VIAL SC PRN (22:15)
[2022-01-24] MEDS ORDERED: HumaLOG 300 UNITS/3 ML VIAL SC PRN (02:12)
[2022-01-24] MEDS: ceFAZolin 1 GM/D5W 1 GM in Premix Bag 1 BAG IVPB SCH (02:45)
[2022-01-24] MEDS: traMADol HCl 50 MG TAB PO SCH ×2 (02:45→08:23)
[2022-01-24] MEDS: ceFAZolin (BATCH) 2 GM in Premix Bag 1 BAG IVPB SCH (06:00)
[2022-01-24] MEDS: Acetaminophen 500 MG TAB PO SCH ×2 (06:30→11:43)
[2022-01-24] MEDS: Ibuprofen 200 MG TAB PO SCH (06:30)
[2022-01-24] MEDS: Sodium Chloride 0.9% 1,000 ML IV SCH (06:32)
[2022-01-24 07:09] LABS: #Eosinphils 0.4 thou/uL (0.0-0.7); #Lymphocytes 1.6 thou/uL (1.20-3.40); #Monocytes 0.8 thou/uL (0.11-0.59); #Neutrophils 8.5 thou/uL (1.40-6.50); %Basophils 0.4 % (0.0-1.0); %Eosinophils 3.8 % (0.0-10.0); %Lymphocytes 14.4 % (21.0-51.0); %Monocytes 7.1 % (0.0-10.0); %Neutrophils 74.4 % (42.0-75.0); Hemoglobin 11.1 g/dL (12.0-16.0); Mean Corpuscular HGB CONC 35.1 g/dL (32.0-36.0); Mean Corpuscular Hemoglobin 34.2 pg (27.0-31.0); Mean Corpuscular Volume 97.5 fL (78.0-98.0); Mean Platelet Volume 7.6 fL (7.4-10.4); Platelet Count 249 thou/uL (130-400); RBC Distribution Width 10.6 % (11.5-14.5); Red Blood Cell (RBC) Count 3.25 mill/uL (4.20-5.40); White Blood Cell (WBC) Count 11.4 thou/uL (4.8-10.8)
[2022-01-24 07:11] LABS: Hemoglobin A1c 10.7 % (4.0-6.0)
[2022-01-24 07:23] LABS: Anion Gap 10 mmol/L (10-20); BUN (Urea Nitrogen) 14 mg/dL (9.8-20.1); Calc. Creatinine Clearance 67 mL/min (70-130); Carbon Dioxide 23 mmol/L (23-31); Chloride 106 mmol/L (98-107); Glucose 138 mg/dL (80-115); Magnesium 1.7 mg/dL (1.6-2.6); Phosphorus 3.3 mg/dL (2.3-4.7); Potassium 4.2 mmol/L (3.5-5.1); Sodium 135 mmol/L (136-145)
[2022-01-24] MEDS ORDERED: glipiZIDE 10 MG TAB PO SCH (07:30)
[2022-01-24] MEDS: Insulin Glargine 30 UNITS/0.3 ML VIAL SC SCH (08:13)
[2022-01-24] MEDS: Famotidine 20 MG TAB PO SCH (08:13)
[2022-01-24] MEDS: metFORMIN 500 MG TAB PO SCH (08:13)
[2022-01-24] MEDS: Saccharomyces boulardii 250 MG CAP PO SCH (08:14)
[2022-01-24] MEDS: Metoprolol Tartrate 25 MG TAB PO SCH (08:14)
[2022-01-24] MEDS: Polyethylene Glycol 3350 17 GM Packet PO SCH (08:15)
[2022-01-24] MEDS ORDERED: Empagliflozin 25 MG TAB PO SCH (09:00)
[2022-01-24] MEDS: Senokot S 8.6-50 MG TAB PO SCH (09:20)
[2022-01-24] MEDS ORDERED: ceFAZolin (BATCH) 2 GM in Premix Bag 1 BAG IVPB SCH (10:00)
[2022-01-24 11:33] VITALS: BP 134/75; TEMP 98.2
== END 2022-01-24 13:20 | disposition home or self-care (01) | DRG 513 ==
LOC: ERS 11:17 → SURG A 16:01
PROVIDERS: ADMIT Specialist; ATTEND Specialist
PROC: 0HQKXZZ Repair Right Lower Leg Skin, External Approach (ICD-10-PCS; 2022-01-22)
PROC: 0PST04Z Reposition Right Finger Phalanx with Internal Fixation Device, Open Approach (ICD-10-PCS; principal; 2022-01-23)
DX: S62.306B Unspecified fracture of fifth metacarpal bone, right hand, initial encounter for open fracture (principal); S27.0XXA Traumatic pneumothorax, initial encounter; E11.9 Type 2 diabetes mellitus without complications; I25.10 Atherosclerotic heart disease of native coronary artery without angina pectoris; E78.5 Hyperlipidemia, unspecified; E78.00 Pure hypercholesterolemia, unspecified; I10 Essential (primary) hypertension; S93.401A Sprain of unspecified ligament of right ankle, initial encounter; S81.811A Laceration without foreign body, right lower leg, initial encounter; S50.812A Abrasion of left forearm, initial encounter; Z20.822 Contact with and (suspected) exposure to COVID-19; S01.01XA Laceration without foreign body of scalp, initial encounter; S90.01XA Contusion of right ankle, initial encounter; Z95.5 Presence of coronary angioplasty implant and graft; V89.2XXA Person injured in unspecified motor-vehicle accident, traffic, initial encounter; Y92.9 Unspecified place or not applicable
CPT/HCPCS: 12002; 29125; 36415; 36416; 70450; 71045; 71260; 72125; 74177; 76000; 80048; 80053; 83036; 83690; 83735; 84100; 85025; 85610; 85730; 86850; 86900; 86901; 90471; 90715; 93005; 96365; 96366; 96375; G0390; J0360; J0690; J1200; J1815; J1885; J2001; J2405; J2704; J3490; J7050; S0020; U0002